=== PATIENT | male | born 1945 | race Caucasian/White ===

== ENCOUNTER 2017-12-13 08:07 | Outpatient (CLI) | payer OTHER ==
--- NOTE | 2017-12-13 15:29 | NM ---
NUCLEAR MEDICINE IMAGING FOR [facility]IN[facility]'S: Date: 12/13/17 TECHNIQUE: Patient administered 4.8 mCi of I-123 Ioflupane. FINDINGS: There appears to be symmetric decreased presence of the radiotracer in bilateral deep sullivan matter str uctures. IMPRESSION: Decreased uptake of the radiotracer in deep sullivan matter structures. POS: [facility]
== END 2017-12-13 08:08 | disposition home or self-care (01) ==
LOC: NM 08:07
PROVIDERS: ATTEND Psychiatry & Neurology Neurology
DX: R25.1 Tremor, unspecified (principal)
CPT/HCPCS: 78607; A9584